=== PATIENT | female | born 1995 | race Caucasian/White ===

== ENCOUNTER 2018-04-28 18:36 | Emergency (ER) | payer BC, MEDICAID ==
[~2018-04-28] VITALS: Ht 167.6 cm; Wt 56.4 kg
[2018-04-28 18:52] VITALS: BP 141/94
--- NOTE | 2018-04-28 19:13 | NUR ---
PT BIB MOM FOR COLD AND FLU LIKE SYMPTOMS X4 DAYS. PT REPORTS ACHY SORE JOINTS IN BLE AND BUE, N/V 2X TODAY, HEADACHE AND COUGH, AND NIGHT SWEATS. PT IS AFEBRILE, NON DIAPHORETIC AT THIS TIME. RR SYMMETRICAL, NON-LABORED, CLEAR BILATERALLY. PT STATES THAT SHE IS BUT IS UNSURE OF HOW MANY WEEKS. PT STATES SHE IS CURRENTLY BEING TREATED FOR A YEAST INFECTION WITH ANTIBIOTICS, BUT COULD NOT REMEMBER THE NAME OF MEDICATION.
[2018-04-28 20:25] LABS: APPEARANCE,URINE CLEAR (CLEAR); BILIRUBIN,URINE NEGATIVE (NEGATIVE); BLOOD, URINE NEGATIVE (NEGATIVE); COLOR,URINE YELLOW (YELLOW); LEUKOCYTE ESTERASE ,URINE TRACE (NEGATIVE); NITRITE, URINE NEGATIVE (NEGATIVE); UGLUCOSE NEGATIVE (NEGATIVE)
[2018-04-28 20:27] LABS: RBC,URINE NONE SEEN /HPF (0-5)
[2018-04-28 20:28] LABS: WBC,URINE 0-5 (RARE) /HPF (0-5)
--- NOTE | 2018-04-28 20:29 | NUR ---
Patient taken to US via wheelchair by tech.
[2018-04-28 20:58] LABS: BASOPHILS % (AUTO) 0.3 % (0.0-2.0); HEMATOCRIT 42.5 % (36-48); HEMOGLOBIN 14.3 g/dL (12.0-16.0); LYMPHOCYTES # (AUTO) 0.5 K/uL (2.5-16.5); LYMPHOCYTES % (AUTO) 11.8 % (20.5-51.1); MEAN CORPUSCULAR HEMOGLOBIN 30 pg (27-31); MEAN CORPUSCULAR HGB CONC 34 g/dL (33-37); MEAN CORPUSCULAR VOLUME 89.7 fL (80-94); MONOCYTES # (AUTO) 0.5 K/uL (0.8-1.0); MONOCYTES % (AUTO) 11.4 % (1.7-9.3); NEUTROPHILS # (AUTO) 3.5 K/uL (1.8-7.7); NEUTROPHILS % (AUTO) 76.5 % (42.2-75.2); PLATELET COUNT (AUTO) 201 K/uL (140-450); RED BLOOD CELL COUNT(AUTO) 4.74 MIL/uL (4.20-5.40); RED CELL DISTRIBUTION WIDTH 12.8 % (11.6-13.7); WHITE BLOOD COUNT (AUTO) 4.6 K/uL (4.8-10.8)
--- NOTE | 2018-04-28 21:09 | NUR ---
PT IS RESTING IN BED, MOM IS AT BEDSIDE. PT STATES SHE FEELS WARM AND CLAMMY. PT TEMPERATURE IS 98.9 ORALLY, PT FEELS SLITGHT WARM TO TOUCH. PT DENIES CIE PACKS OR COOL WASH CLOTH.
[2018-04-28 21:10] LABS: CARBON DIOXIDE 25.3 mmol/L (21-32); CREATININE 0.7 mg/dL (0.6-1.3); POTASSIUM 3.3 mmol/L (3.5-5.1)
[2018-04-28] MEDS ORDERED: ACETAMINOPHEN 325 MG TAB PO ONE (21:30)
[2018-04-28 22:35] VITALS: BP 113/85
--- NOTE | 2018-04-28 22:35 | NUR ---
Patient discharged with v/s stable. Written and verbal after care instructions given and explained. Patient alert, oriented and verbalized understanding of instructions. Ambulatory with steady gait. All questions addressed prior to discharge. ID band removed. Patient advised to follow up with PMD. Rx of TYLENOL, MONISTAT given. Patient educated on indication of medication including possible reaction and side effects. Opportunity to ask questions provided and answered.
== END 2018-04-28 22:35 | disposition home or self-care (01) ==
LOC: MED 18:36
DX: O99.511 Diseases of the respiratory system complicating pregnancy, first trimester (principal); O23.41 Unspecified infection of urinary tract in pregnancy, first trimester; O98.811 Other maternal infectious and parasitic diseases complicating pregnancy, first trimester; B37.9 Candidiasis, unspecified
CPT/HCPCS: 36415; 76801; 80048; 81001; 84702; 85025; 86900; 86901; 99284; Q0092

== ENCOUNTER 2018-05-05 14:42 | Emergency (ER) | payer MEDICAID ==
[~2018-05-05] VITALS: Ht 167.6 cm; Wt 55.0 kg
[2018-05-05 15:17] VITALS: BP 110/73
[2018-05-05 16:33] LABS: BASOPHILS % (AUTO) 0.2 % (0.0-2.0); EOSINOPHILS % (AUTO) 0.3 % (0.0-4.0); HEMATOCRIT 41.9 % (36-48); HEMOGLOBIN 14.2 g/dL (12.0-16.0); LYMPHOCYTES # (AUTO) 1.6 K/uL (2.5-16.5); LYMPHOCYTES % (AUTO) 17.2 % (20.5-51.1); MEAN CORPUSCULAR HEMOGLOBIN 30 pg (27-31); MEAN CORPUSCULAR HGB CONC 34 g/dL (33-37); MONOCYTES # (AUTO) 0.7 K/uL (0.8-1.0); MONOCYTES % (AUTO) 7.8 % (1.7-9.3); NEUTROPHILS # (AUTO) 7.1 K/uL (1.8-7.7); NEUTROPHILS % (AUTO) 74.5 % (42.2-75.2); PLATELET COUNT (AUTO) 309 K/uL (140-450); RED BLOOD CELL COUNT(AUTO) 4.76 MIL/uL (4.20-5.40); RED CELL DISTRIBUTION WIDTH 12.7 % (11.6-13.7); WHITE BLOOD COUNT (AUTO) 9.6 K/uL (4.8-10.8)
[2018-05-05 18:17] LABS: APPEARANCE,URINE SL CLOUDY (CLEAR); BILIRUBIN,URINE NEGATIVE (NEGATIVE); BLOOD, URINE NEGATIVE (NEGATIVE); COLOR,URINE YELLOW (YELLOW); LEUKOCYTE ESTERASE ,URINE 1+ (NEGATIVE); NITRITE, URINE NEGATIVE (NEGATIVE); UGLUCOSE NEGATIVE (NEGATIVE)
[2018-05-05 18:20] LABS: RBC,URINE 0-5 (RARE) /HPF (0-5)
[2018-05-05] MEDS ORDERED: ONDANSETRON 4 MG ODT PO ONE (18:35)
[2018-05-05 19:20] VITALS: BP 98/60
== END 2018-05-05 19:18 | disposition home or self-care (01) ==
LOC: MED 14:42
DX: O23.41 Unspecified infection of urinary tract in pregnancy, first trimester (principal); O21.8 Other vomiting complicating pregnancy; O26.891 Other specified pregnancy related conditions, first trimester; R19.7 Diarrhea, unspecified; Z3A.01 Less than 8 weeks gestation of pregnancy
CPT/HCPCS: 36415; 81001; 84702; 85025; 87086; 99283; Q0162

== ENCOUNTER 2022-12-02 23:25 | Emergency (ER) | payer OTHER ==
[~2022-12-02] VITALS: Ht 167.6 cm; Wt 65.8 kg
[~2022-12-02 23:25] MED LIST: FERR325E14 PO; PREN-380 PO
[2022-12-02 23:42] VITALS: BP 136/90; PULSE 60; RESP 17; TEMP 98; O2SAT 99
--- NOTE | 2022-12-02 23:45 | NUR ---
TO LOBBY A/W BED AMBULATORY
[2022-12-03 00:19] LABS: BASOPHILS % (AUTO) 0.6 % (0.0-2.0); EOSINOPHILS # (AUTO) 0.4 K/uL (0-0.4); EOSINOPHILS % (AUTO) 5.3 % (0.0-4.0); HEMOGLOBIN 13.1 g/dL (12.0-16.0); LYMPHOCYTES % (AUTO) 27.6 % (20.5-51.1); MEAN CORPUSCULAR HEMOGLOBIN 31 pg (27-31); MEAN CORPUSCULAR HGB CONC 35 g/dL (33-37); MEAN CORPUSCULAR VOLUME 90.2 fL (80-94); MONOCYTES # (AUTO) 0.7 K/uL (0.8-1.0); MONOCYTES % (AUTO) 9.9 % (1.7-9.3); NEUTROPHILS # (AUTO) 4.2 K/uL (1.8-7.7); NEUTROPHILS % (AUTO) 56.6 % (42.2-75.2); PLATELET COUNT (AUTO) 315 K/uL (140-450); RED BLOOD CELL COUNT(AUTO) 4.21 MIL/uL (4.20-5.40); RED CELL DISTRIBUTION WIDTH 14.2 % (11.6-13.7); WHITE BLOOD COUNT (AUTO) 7.4 K/uL (4.8-10.8)
[2022-12-03 00:58] LABS: ALBUMIN 4.5 g/dL (3.4-5.0); ANION GAP 13.2 (8-16); CARBON DIOXIDE 29.6 mmol/L (21-32); CHLORIDE 101 mmol/L (98-107); CREATININE 0.7 mg/dL (0.6-1.3); GFR ARICAN-AMERICAN 129 mL/min (>90); GLUCOSE 86 mg/dL (74-106); POTASSIUM 3.8 mmol/L (3.5-5.1); SODIUM SERUM 140 mmol/L (136-145); UREA NITROGEN, BLOOD 14 mg/dL (7-18)
[2022-12-03] MEDS ORDERED: IBUPROFEN 600 MG TAB PO ONE (01:00)
[2022-12-03 01:17] LABS: ASPARTATE AMINOTRANSFERASE 21 U/L (15-37); TOTAL BILIRUBIN 0.4 mg/dL (0.0-1.0)
[2022-12-03 01:18] LABS: LIPASE 177 U/L (73-393)
[2022-12-03] MEDS ORDERED: IBUP-2213 PO (02:10)
[2022-12-03 02:17] VITALS: BP 136/90; PULSE 60; RESP 17; TEMP 98; O2SAT 99
== END 2022-12-03 02:17 | disposition home or self-care (01) ==
LOC: MED 23:25
DX: R07.89 Other chest pain (principal); F41.9 Anxiety disorder, unspecified; F17.200 Nicotine dependence, unspecified, uncomplicated; F12.90 Cannabis use, unspecified, uncomplicated; Z79.899 Other long term (current) drug therapy
CPT/HCPCS: 36415; 71045; 80053; 83690; 84484; 85025; 93005; 99285

== ENCOUNTER 2023-02-07 21:16 | Emergency (ER) | payer OTHER ==
[~2023-02-07] VITALS: Ht 170.2 cm; Wt 63.0 kg
[~2023-02-07 21:16] MED LIST changes: +IBUP-2213 PO
[2023-02-07 21:44] VITALS: BP 137/85; PULSE 82; RESP 18; TEMP 97.7; O2SAT 98
[2023-02-07 23:47] VITALS: O2SAT 98
[2023-02-08 01:19] LABS: APPEARANCE,URINE CLOUDY (CLEAR); BILIRUBIN,URINE NEGATIVE (NEGATIVE); BLOOD, URINE TRACE-I (NEGATIVE); COLOR,URINE YELLOW (YELLOW); LEUKOCYTE ESTERASE ,URINE TRACE (NEGATIVE); NITRITE, URINE NEGATIVE (NEGATIVE); PROTEIN,URINE 2+ (NEGATIVE); UGLUCOSE NEGATIVE (NEGATIVE); UROBILINOGEN,URINE 0.2 EU/dL (0.2 - 1)
[2023-02-08 01:27] LABS: BACTERIA,URINE 10-30 (MOD) /HPF (None Seen); MUCUS,URINE 1+ /LPF (None Seen); SQUAMOUS EPITHELIAL CELL,UR 0-3 (FEW) /LPF (0-3 (FEW))
[2023-02-08] MEDS ORDERED: CEPH-588 PO (02:52)
[2023-02-08] MEDS ORDERED: METR-435 PO (02:52)
[2023-02-08] MEDS ORDERED: NAPR-54 PO (02:52)
== END 2023-02-08 03:06 | disposition home or self-care (01) ==
LOC: MED 21:16
DX: N39.0 Urinary tract infection, site not specified (principal); N76.0 Acute vaginitis; B96.89 Other specified bacterial agents as the cause of diseases classified elsewhere; B00.9 Herpesviral infection, unspecified; F12.90 Cannabis use, unspecified, uncomplicated; Z79.1 Long term (current) use of non-steroidal anti-inflammatories (NSAID); Z79.2 Long term (current) use of antibiotics; Z79.899 Other long term (current) drug therapy
CPT/HCPCS: 81001; 81025; 87086; 87210; 99284

== ENCOUNTER 2023-08-26 20:09 | Emergency (ER) | payer OTHER ==
[~2023-08-26] VITALS: Ht 170.2 cm; Wt 66.2 kg
[~2023-08-26 20:09] MED LIST changes: +CEPH-588 PO; +METR-435 PO; +NAPR-337 PO
[2023-08-26 21:21] VITALS: BP 127/49; PULSE 84; RESP 18; TEMP 98.1; O2SAT 99
[2023-08-26] MEDS ORDERED: NITR100C7 PO (22:32)
[2023-08-26] MEDS ORDERED: PYR100 PO (22:32)
[2023-08-26 22:35] VITALS: BP 120/56; PULSE 84; RESP 18; TEMP 98.1; O2SAT 99
== END 2023-08-26 22:35 | disposition home or self-care (01) ==
LOC: MED 20:09
DX: N30.00 Acute cystitis without hematuria (principal); J02.9 Acute pharyngitis, unspecified; R05.9 Cough, unspecified; Z79.899 Other long term (current) drug therapy
CPT/HCPCS: 81002; 81025; 99283